=== PATIENT | female | born 2000 | race Caucasian/White ===

== ENCOUNTER 2018-09-28 17:57 | Emergency (ER) | payer MEDICAID ==
[~2018-09-28] VITALS: Ht 170.2 cm; Wt 62.0 kg
[~2018-09-28 17:57] MED LIST: LIDO20SO PO
[2018-09-28 18:52] VITALS: BP 106/57
--- NOTE | 2018-09-28 20:25 | NUR ---
DR SRIVASTAVA AT BEDSIDE
[2018-09-28] MEDS ORDERED: DEXT15SY PO (20:34)
[2018-09-28] MEDS ORDERED: AMOX500C2 PO (20:38)
== END 2018-09-28 20:48 | disposition home or self-care (01) ==
LOC: ER 17:57
DX: O26.892 Other specified pregnancy related conditions, second trimester (principal); R05 Cough; J02.9 Acute pharyngitis, unspecified; Z3A.20 20 weeks gestation of pregnancy
CPT/HCPCS: 99282

== ENCOUNTER 2020-03-19 11:06 | Emergency (ER) | payer MEDICAID ==
[~2020-03-19] VITALS: Ht 170.2 cm; Wt 61.4 kg
[~2020-03-19 11:06] MED LIST changes: +DEXT15SY PO
[2020-03-19 11:15] VITALS: BP 111/53
[2020-03-19] MEDS ORDERED: ondansetron 4mg rapidly disintigrating tab PO ONE (12:40)
[2020-03-19 12:54] LABS: CLARITY,URINE SLIGHTLY CLOUDY (Clear); COLOR,URINE YELLOW (Yellow); GLUCOSE, URINE NEGATIVE (Neg); KETONES,URINE NEGATIVE (Neg); LEUKOCYTE ESTERASE ,URINE NEGATIVE (Neg); NITRITES, URINE NEGATIVE (Neg); OCCULT BLOOD,URINE MODERATE (Neg); PROTEIN,URINE NEGATIVE (Neg)
[2020-03-19 12:54] LABS: BASOPHILS # (AUTO) 0.1 X10'3 (0-0.2); BASOPHILS % (AUTO) 0.9 % (0-1); EOSINOPHILS # (AUTO) 0.1 X10'3 (0-0.9); EOSINOPHILS % (AUTO) 1.3 % (0-6); HEMATOCRIT 35.9 % (35.0-45.0); HEMOGLOBIN 12.4 g/dl (12.0-16.0); LYMPHOCYTES # (AUTO) 1.8 X10'3 (1.1-4.8); LYMPHOCYTES % (AUTO) 31.6 % (21-51); MEAN CORPUSCULAR HEMOGLOBIN 31.7 PG (27.0-31.0); MEAN CORPUSCULAR HGB CONC 34.5 g/dL (33.0-36.5); MEAN PLATELET VOLUME 8.1 FL (7.4-10.4); MONOCYTES # (AUTO) 0.5 X10'3 (0-0.9); MONOCYTES % (AUTO) 9.1 % (2-12); NEUTROPHILS # (AUTO) 3.2 X10'3 (1.8-7.7); NEUTROPHILS % (AUTO) 57.1 % (42-75); PLATELET COUNT 149 X10'3 (140-440); RED CELL DISTRIBUTION WIDTH 12.4 % (11.5-14.5); WHITE BLOOD COUNT 5.7 X10'3 (4.5-11.0)
[2020-03-19 12:58] LABS: URINE HCG POSITIVE (NEG)
[2020-03-19 13:10] LABS: ALANINE AMINOTRANSFERASE 32 U/L (12-78); ALBUMIN 3.7 G/DL (3.4-5.0); ALBUMIN/GLOBULIN RATIO 1.2 (1.1-1.5); ALKALINE PHOSPHATASE 40 IU/L (46-116); ANION GAP 8 (8-16); ASPARTATE AMINO TRANSFERASE 14 U/L (10-37); BILIRUBIN,TOTAL 0.6 MG/DL (0.1-1.0); BLOOD UREA NITROGEN 7 MG/DL (7-18); BUN/CREATININE RATIO 10.3 (6.6-38.0); CHLORIDE 108 MMOL/L (99-107); CREATININE 0.68 MG/DL (0.40-0.90); GLUCOSE 88 MG/DL (70-104); POTASSIUM 3.9 MMOL/L (3.5-5.1); SODIUM 142 MMOL/L (135-145); TOTAL CARBON DIOXIDE 26.3 MMOL/L (24-32); TOTAL PROTEIN 6.7 G/DL (6.4-8.2); eGFR > 90 ML/MIN
[2020-03-19 13:17] LABS: UA COLLECTION TYPE CLN CATCH MIDSTREAM
[2020-03-19 13:18] LABS: BACTERIA,URINE NONE SEEN /HPF (Neg); MUCUS STRANDS FEW /LPF (Neg); RBC,URINE NONE SEEN /HPF (0-2); SQUAMOUS EPITHELIAL CELL,UR FEW /LPF (FEW); WBC,URINE 0-4 /HPF (0-4)
[2020-03-19 13:35] LABS: BETA HCG,QUANTITATIVE 22160 mIU/ml
--- NOTE | 2020-03-19 13:54 | NUR ---
Ultrasound in progress.
[2020-03-19] MEDS ORDERED: NYSPWD TP (15:33)
== END 2020-03-19 15:47 | disposition home or self-care (01) ==
LOC: ER 11:08
DX: O26.91 Pregnancy related conditions, unspecified, first trimester (principal); R10.31 Right lower quadrant pain; N93.8 Other specified abnormal uterine and vaginal bleeding; B37.9 Candidiasis, unspecified; Z79.899 Other long term (current) drug therapy
CPT/HCPCS: 36415; 76802; 80053; 81001; 81025; 84702; 85025; 93976; 99284

== ENCOUNTER 2020-08-09 14:03 | Emergency (ER) | payer MEDICAID ==
[~2020-08-09] VITALS: Ht 165.1 cm; Wt 58.2 kg
[~2020-08-09 14:03] MED LIST changes: +NYSPWD TP
[2020-08-09 15:01] VITALS: BP 106/67
== END 2020-08-09 16:39 | disposition home or self-care (01) ==
LOC: ER 14:03
DX: R05 Cough (principal); Z20.828 Contact with and (suspected) exposure to other viral communicable diseases
CPT/HCPCS: 99282

== ENCOUNTER 2022-04-18 16:08 | Emergency (ER) | payer MEDICAID ==
[~2022-04-18] VITALS: Ht 170.2 cm; Wt 56.0 kg
[2022-04-18 16:20] VITALS: BP 114/59
[2022-04-18 17:06] LABS: URINE HCG NEGATIVE (NEG)
[2022-04-18 17:14] LABS: CLARITY,URINE SLIGHTLY CLOUDY (Clear); GLUCOSE, URINE NEGATIVE (Neg); KETONES,URINE >=80 mg/dl (Neg); LEUKOCYTE ESTERASE ,URINE NEGATIVE (Neg); NITRITES, URINE NEGATIVE (Neg); OCCULT BLOOD,URINE NEGATIVE (Neg); PROTEIN,URINE NEGATIVE (Neg); UROBILINOGEN,URINE 0.2 E.U/dL (0.2-1.0)
[2022-04-18 17:28] LABS: COLOR,URINE DARK YELLOW (Yellow); UA COLLECTION TYPE CLN CATCH MIDSTREAM
[2022-04-18 17:30] LABS: BACTERIA,URINE FEW /HPF (Neg); MUCUS STRANDS MANY /LPF (Neg); RBC,URINE NONE SEEN /HPF (0-2); SQUAMOUS EPITHELIAL CELL,UR MANY /LPF (FEW); WBC,URINE 0-4 /HPF (0-4)
[2022-04-18] MEDS ORDERED: CefTRIAXone 1000mg IM Kit (w/lidocaine diluent) IM STA (18:17)
[2022-04-18 19:23] LABS: CLARITY,URINE SLIGHTLY CLOUDY (Clear); COLOR,URINE YELLOW (Yellow); GLUCOSE, URINE NEGATIVE (Neg); KETONES,URINE 15 mg/dl (Neg); LEUKOCYTE ESTERASE ,URINE NEGATIVE (Neg); NITRITES, URINE NEGATIVE (Neg); OCCULT BLOOD,URINE NEGATIVE (Neg); PROTEIN,URINE NEGATIVE (Neg)
[2022-04-18] MEDS ORDERED: DOXYCYCLINE 100MG CAPSULE PO STA (19:33)
[2022-04-18 19:34] LABS: UA COLLECTION TYPE NON-SPECIFIED
[2022-04-18] MEDS ORDERED: DOXY100C76 PO (19:34)
[2022-04-18 19:36] LABS: BACTERIA,URINE FEW /HPF (Neg); MUCUS STRANDS FEW /LPF (Neg); RBC,URINE 0-2 /HPF (0-2); SQUAMOUS EPITHELIAL CELL,UR FEW /LPF (FEW)
[2022-04-18 19:39] LABS: CAL OXALATE CRYSTALS FEW /HPF (NEGATIVE)
[2022-04-18 19:40] LABS: YEAST FEW /HPF (NEGATIVE)
[2022-04-18] MEDS ORDERED: LIDO28CR2 TP (19:42)
== END 2022-04-18 20:03 | disposition home or self-care (01) ==
LOC: ER 16:09
DX: Z20.2 Contact with and (suspected) exposure to infections with a predominantly sexual mode of transmission (principal)
CPT/HCPCS: 36415; 81001; 81025; 87088; 87491; 87591; 96372; 99283; J0696

== ENCOUNTER 2022-05-01 16:23 | Emergency (ER) | payer MEDICAID ==
[~2022-05-01] VITALS: Ht 170.2 cm; Wt 54.5 kg
[~2022-05-01 16:23] MED LIST changes: +LIDO28CR2 TP
[2022-05-01 16:34] VITALS: BP 120/72
[2022-05-01] MEDS ORDERED: HYDROcodone/acetaminophen 5mg/325mg tablet PO ONE (16:40)
[2022-05-01] MEDS ORDERED: ibuprofen tablet 400 MG TABLET PO ONE (16:40)
--- NOTE | 2022-05-01 16:40 | NUR ---
PT REPORTS SEVERE 10/10 PAIN. EDMS OHLFS INFORMED AND VERBAL ORDERS RECEIVED FOR IBUPROFEN 600MG PO X1 DOSE NOW AND NORCO 5/325MG PO X1 DOSE NOW. ORDERS PLACED RECEIVED
--- NOTE | 2022-05-01 17:08 | NUR ---
PO MEDS X2 GIVEN
[2022-05-01] MEDS ORDERED: LIDOcaine 1% 30ml preserv. free vial IJ STA (17:11)
--- NOTE | 2022-05-01 17:55 | NUR ---
PA AT BEDSIDE FOR TOE REDUCTION. PT TOLERATED PROCEDURE WELL WITH NO VERBAL COMPLAINT FROM PT. 5TH AND 4TH TOE ROQUE TAPED
[2022-05-01] MEDS ORDERED: HYDR-3965 PO (18:25)
== END 2022-05-01 18:41 | disposition home or self-care (01) ==
LOC: ER 16:23
DX: S92.511A Displaced fracture of proximal phalanx of right lesser toe(s), initial encounter for closed fracture (principal); W18.39XA Other fall on same level, initial encounter; Y93.89 Activity, other specified; Y92.89 Other specified places as the place of occurrence of the external cause; Y99.8 Other external cause status
CPT/HCPCS: 28515; 73660; 99284; L3260; A6449

== ENCOUNTER 2023-02-06 11:21 | Emergency (ER) | payer MEDICAID ==
[~2023-02-06] VITALS: Ht 170.2 cm; Wt 91.0 kg
[2023-02-06 13:39] VITALS: BP 112/61
[2023-02-06 15:09] LABS: URINE HCG NEGATIVE (NEG)
== END 2023-02-06 17:05 | disposition home or self-care (01) ==
LOC: ER 11:21
DX: S05.11XA Contusion of eyeball and orbital tissues, right eye, initial encounter (principal); S06.0X0A Concussion without loss of consciousness, initial encounter; M54.2 Cervicalgia; M54.6 Pain in thoracic spine; R07.81 Pleurodynia; F17.200 Nicotine dependence, unspecified, uncomplicated; X58.XXXA Exposure to other specified factors, initial encounter; Y93.89 Activity, other specified; Y92.89 Other specified places as the place of occurrence of the external cause; Y99.8 Other external cause status
CPT/HCPCS: 70450; 70486; 71046; 72125; 72128; 81025; 99284

== ENCOUNTER 2023-06-16 17:14 | Emergency (ER) | payer MEDICAID | END 2023-06-16 18:46 | disposition left against medical advice (07) | LOC: ER 17:14 | DX: M25.539 Pain in unspecified wrist (principal); Z53.21 Procedure and treatment not carried out due to patient leaving prior to being seen by health care provider ==

== ENCOUNTER 2023-07-12 13:29 | Emergency (ER) | payer MEDICAID | END 2023-07-12 13:41 | disposition left against medical advice (07) | LOC: ER 13:30 | DX: N93.9 Abnormal uterine and vaginal bleeding, unspecified (principal); Z53.21 Procedure and treatment not carried out due to patient leaving prior to being seen by health care provider ==

== ENCOUNTER 2023-07-15 18:26 | Emergency (ER) | payer MEDICAID ==
[~2023-07-15] VITALS: Ht 170.2 cm; Wt 59.0 kg
[2023-07-15 18:40] VITALS: BP 119/66; PULSE 83; TEMP 97.9; O2SAT 99
[2023-07-15 19:51] LABS: BILIRUBIN,URINE NEGATIVE (Neg); CLARITY,URINE CLOUDY (Clear); COLOR,URINE YELLOW (Yellow); GLUCOSE, URINE NEGATIVE (Neg); KETONES,URINE NEGATIVE (Neg); LEUKOCYTE ESTERASE ,URINE TRACE (Neg); NITRITES, URINE NEGATIVE (Neg); OCCULT BLOOD,URINE NEGATIVE (Neg); PROTEIN,URINE NEGATIVE (Neg)
[2023-07-15 19:52] LABS: URINE HCG NEGATIVE (NEG)
[2023-07-15 19:56] LABS: BASOPHILS % (AUTO) 0.6 % (0-1); EOSINOPHILS # (AUTO) 0.2 X10'3 (0-0.9); EOSINOPHILS % (AUTO) 1.8 % (0-6); HEMATOCRIT 39.8 % (35.0-45.0); HEMOGLOBIN 13.8 g/dl (12.0-16.0); LYMPHOCYTES # (AUTO) 2.1 X10'3 (1.1-4.8); LYMPHOCYTES % (AUTO) 25.8 % (21-51); MEAN CORPUSCULAR HEMOGLOBIN 32.9 PG (27.0-31.0); MEAN CORPUSCULAR HGB CONC 34.7 g/dL (33.0-36.5); MEAN CORPUSCULAR VOLUME 94.9 FL (78-98); MONOCYTES # (AUTO) 0.7 X10'3 (0-0.9); MONOCYTES % (AUTO) 8.8 % (2-12); NEUTROPHILS # (AUTO) 5.2 X10'3 (1.8-7.7); PLATELET COUNT 177 X10'3 (140-440); RED BLOOD COUNT 4.19 X10'6 (4.20-5.60); RED CELL DISTRIBUTION WIDTH 12.5 % (11.5-14.5); WHITE BLOOD COUNT 8.2 X10'3 (4.5-11.0)
[2023-07-15 20:01] LABS: ALANINE AMINOTRANSFERASE 29 U/L (12-78); ALBUMIN 3.7 G/DL (3.4-5.0); ALBUMIN/GLOBULIN RATIO 0.9 (1.1-1.5); ALKALINE PHOSPHATASE 75 IU/L (46-116); ANION GAP 5 (8-16); ASPARTATE AMINO TRANSFERASE 38 U/L (10-37); BILIRUBIN,TOTAL 0.4 MG/DL (0.1-1.0); BLOOD UREA NITROGEN 13 MG/DL (7-18); BUN/CREATININE RATIO 13.8 (10.0-20.0); CALCIUM 9.6 MG/DL (8.5-10.1); CHLORIDE 103 MMOL/L (99-107); CREATININE 0.94 MG/DL (0.40-0.90); GLUCOSE 97 MG/DL (70-104); POTASSIUM 3.7 MMOL/L (3.5-5.1); SODIUM 141 MMOL/L (135-145); TOTAL CARBON DIOXIDE 33.4 MMOL/L (24-32); TOTAL PROTEIN 7.8 G/DL (6.4-8.2); eCRCL 85 ML/MIN; eGFR 73 ML/MIN
[2023-07-15 20:05] LABS: LIPASE 27 U/L (16-77)
[2023-07-15 20:06] LABS: UA COLLECTION TYPE CLN CATCH MIDSTREAM
[2023-07-15 20:09] LABS: SQUAMOUS EPITHELIAL CELL,UR MODERATE /LPF (FEW)
[2023-07-15 20:10] LABS: RBC,URINE NONE SEEN /HPF (0-2); WBC,URINE 0-4 /HPF (0-4)
[2023-07-15 20:11] LABS: BACTERIA,URINE 1+ /HPF (Neg)
[2023-07-15] MEDS ORDERED: acetaminophen 325mg tablet PO ONE (22:25)
[2023-07-15] MEDS ORDERED: ketorolac trometh inj. 60 MG/2 ML VIAL IM ONE (22:25)
[2023-07-15 22:57] VITALS: RESP 18
== END 2023-07-16 00:37 | disposition home or self-care (01) ==
LOC: ER 18:26
DX: A74.9 Chlamydial infection, unspecified (principal); Z88.0 Allergy status to penicillin; Z79.899 Other long term (current) drug therapy
CPT/HCPCS: 36415; 80053; 81001; 81025; 83690; 85025; 87088; 96372; 99283; J1885

== ENCOUNTER 2023-12-28 20:13 | Emergency (ER) | payer MEDICAID ==
[~2023-12-28] VITALS: Ht 170.2 cm; Wt 6.4 kg
[2023-12-28 20:29] VITALS: BP 121/55; PULSE 70; TEMP 98.9; O2SAT 97
[2023-12-28] MEDS ORDERED: PHEN1SUP96 PR (22:43)
[2023-12-28] MEDS ORDERED: OXYC-145 PO (22:43)
[2023-12-28] MEDS: ketorolac trometh. 30mg/ml inj. IM ONE (22:56)
[2023-12-28 22:57] VITALS: RESP 18
[2023-12-28] MEDS: oxyCODONE/APAP 10/325mg tablet PO ONE (22:57)
[2023-12-28] MEDS: dexamethasone sod phosphate 10mg/ml inj PO STA (22:57)
[2023-12-28] MEDS: ketorolac tromethamine 15mg/ml inj. IM ONE (23:08)
== END 2023-12-28 23:16 | disposition home or self-care (01) ==
LOC: ER 20:15
DX: K64.4 Residual hemorrhoidal skin tags (principal); K62.89 Other specified diseases of anus and rectum; Z88.0 Allergy status to penicillin; Z79.899 Other long term (current) drug therapy; Z79.2 Long term (current) use of antibiotics
CPT/HCPCS: 96372; 99283; J1100; J1885

== ENCOUNTER 2024-04-18 09:08 | Emergency (ER) | payer MEDICAID ==
[~2024-04-18] VITALS: Ht 170.2 cm; Wt 61.4 kg
[~2024-04-18 09:08] MED LIST changes: +OXYC-145 PO; +PHEN1SUP96 PR
[2024-04-18 09:13] VITALS: BP 116/74; PULSE 82; RESP 16; TEMP 99.2; O2SAT 96
== END 2024-04-18 10:59 | disposition home or self-care (01) ==
LOC: ER 09:08
DX: B33.8 Other specified viral diseases (principal); Z88.0 Allergy status to penicillin; Z79.899 Other long term (current) drug therapy
CPT/HCPCS: 99281

== ENCOUNTER 2024-09-06 10:26 | Emergency (ER) | payer MEDICAID ==
[~2024-09-06] VITALS: Ht 167.6 cm; Wt 63.6 kg
[2024-09-06 10:54] VITALS: BP 114/48; PULSE 72; RESP 16; TEMP 97.2; O2SAT 97
== END 2024-09-06 11:49 | disposition home or self-care (01) ==
LOC: ER 10:26
DX: M79.651 Pain in right thigh (principal); F41.9 Anxiety disorder, unspecified; Z88.0 Allergy status to penicillin; Z79.899 Other long term (current) drug therapy
CPT/HCPCS: 99284

== ENCOUNTER 2025-05-16 10:02 | Emergency (ER) | payer MEDICAID ==
[~2025-05-16] VITALS: Ht 170.2 cm; Wt 59.7 kg
[2025-05-16 10:14] VITALS: BP 106/58; PULSE 84; RESP 16; TEMP 98; O2SAT 99
[2025-05-16] MEDS ORDERED: AZIT250T2 PO (10:51)
--- NOTE | 2025-05-16 10:52 | Physician Documentation ---
History of Present Illness ~ Chief Complaint: Ear Pain Stated Complaint: EAR INFECTION Time Seen by MD: 10:25 Primary Medical Doctor: [facility] Source: patient Mode of Arrival: POV Exam Limitations: no limitations HPI 25-year-old female with complaints of left ear pain worsening over the past few days. Patient was seen by her primary care and told she had effusion was given nasal spray. Since last night she states that she has had low-grade fever and complaints of worsening pain no discharge no difficulty hearing Medication Reconciliation Allergies: Coded Allergies: Penicillins (Verified Adverse Reaction, Unknown, HIVES, 09/06/24) Scheduled Azithromycin (Zithromax), 1 TAB PO UD Lidocaine/Phenyl/Glycer/Petrol (Preparation H Rapid-Lido Cream), 1 APPLIC TP Q6H Nystatin (NYSTOP powder), 1 APPLIC TP BID Scheduled PRN Dextromethorphan Hbr (Robitussin), 5 ML PO Q8HPRN PRN for cough Lidocaine Hcl (Lidocaine Hcl Viscous), 15 ML PO Q6H PRN for SORE THROAT Oxycodone HCl/Acetaminophen (Percocet 5-325 mg Tablet), 1 TAB PO TID PRN PRN for rectal pain Phenylephrine HCl/Benicia Butter* (Preparation H Suppository*), 1 SUPP.RECT [place] Q12H PRN for itching Past Medical History Past Medical History: No Pertinent History Past Surgical History: no surgical history Alcohol Use: None Drug Use: none Lives with: Mother Lives In: Home Occupation: student Review of Systems All Other Systems at this time: Reviewed and Negative ENT: Reports: see HPI Physical Exam Vital Signs: Temperature: 98.0, Source: Temporal, Heart Rate: 84, Respiratory Rate: 16, BP: 106/58, Pulse Oximetry: 99, Weight: 59.700 General Appearance: alert, WD/WN, no apparent distress Ear: auricle normal, TM bulging, TM red; No: discharge Respiratory: lungs clear, normal breath sounds, no respiratory distress Chest: no accessory muscle use, chest non-tender Cardiovascular: normal peripheral pulses, regular rate, rhythm, no edema Progress Results/Orders Results/Orders Vital Signs 05/16/25 10:14 Temp 98.0 Pulse 84 Resp 16 B/P (MAP) 106/58 Pulse Ox 99 Medical Decision Making Findings Otitis media as noted to left ear both with effusion. Instructed on primary care re-evaluation antibiotics prescribed Ear Diff. Dx: Considerations: Include: Cerumen impaction, Foreign body, Otitis externa, Otitis media, Perforation, Tympanic Membrane Injury Departure Time of Disposition: 10:47 Disposition: 01 HOME / SELF CARE / HOMELESS Impression: Primary Impression: Otitis media Qualified Codes: H66.90 - Otitis media, unspecified, unspecified ear Condition: Stable Discharge Instructions: Earache, Adult Additional Instructions: Use Tylenol or ibuprofen as needed for fevers and pain take antibiotics as prescribed Referrals: NO PRIMARY CARE PROVIDER (PCP) Prescriptions Azithromycin (Zithromax) 250 Mg Tablet 1 TAB PO UD for 5 Days, #6 TAB 2 the first day followed by 1 for days 2-5 Prov: JAILYN SANTOS NP 05/16/25 Education Educated: Patient Educated regarding: diagnosis, treatment, need for follow up Signature Scribe Signature: No scribe Attestation: The note accurately reflects work and decisions made by me.Jailyn CLAROS 05/16/25 10:51 JAILYN SANTOS NP May 16, 2025 10:52
== END 2025-05-16 11:08 | disposition home or self-care (01) ==
LOC: ER 10:03
DX: H66.92 Otitis media, unspecified, left ear (principal); Z88.0 Allergy status to penicillin; Z79.899 Other long term (current) drug therapy
CPT/HCPCS: 99283